=== PATIENT | female | born 1995 | race Two or more races ===

== ENCOUNTER 2018-05-02 01:04 | Emergency (ER) | payer SELFPAY ==
[~2018-05-02] VITALS: Ht 162.6 cm; Wt 70.3 kg
[2018-05-02] MEDS ORDERED: ONDANSETRON 4 MG TAB.RAPDIS ONE (01:11)
--- NOTE | 2018-05-02 01:12 | NUR ---
PT REC'D CINDI TOWNSEND.
--- NOTE | 2018-05-02 01:15 | NUR ---
PT VOMITTED UP THE ZOFRAN.
[2018-05-02] MEDS ORDERED: ONDANSETRON HCL/PF 4 MG/2 ML VIAL ONE (01:20)
--- NOTE | 2018-05-02 01:21 | NUR ---
PT STILL FEELS NAUSEATED. PT REC'D ZOFRAN IM IN RT BUTTOCK.
[2018-05-02] MEDS ORDERED: ONDANSETRON HCL/PF 4 MG/2 ML VIAL IM ONE (01:30)
[2018-05-02] MEDS ORDERED: ONDANSETRON 4 MG TAB.RAPDIS SL ONE (01:30)
--- NOTE | 2018-05-02 02:54 | NUR ---
PT IS SITTING UP AWAKE AND SPEAKING TO HER MOTHER AND SISTER. BOYFRIEND IS NOW AT THE BEDSIDE.
[2018-05-02 03:19] VITALS: BP 129/80
== END 2018-05-02 03:19 | disposition home or self-care (01) ==
LOC: ER 01:05
DX: F10.129 Alcohol abuse with intoxication, unspecified (principal); Y90.9 Presence of alcohol in blood, level not specified
CPT/HCPCS: 82962; 96372; 99283; A4606; J2405; Q0162